=== PATIENT | male | born 1985 | race Caucasian/White ===

== ENCOUNTER 2018-06-30 02:33 | Emergency (ER) | payer SELFPAY ==
[2018-06-30 02:34] VITALS: BP 141/101
--- NOTE | 2018-06-30 02:37 | ER Report ---
History and Physical Time Seen By MD: 02:35 HPI/ROS CHIEF COMPLAINT: Shelter clearance HISTORY OF PRESENT ILLNESS: 32-year-old male brought in by police for [facility] clearance. Patient voices no complaints. Patient voices no significant medical history. REVIEW OF SYSTEMS: Respiratory: No cough, no dyspnea. Cardiovascular: No chest pain, no palpitations. Gastrointestinal: No vomiting, no abdominal pain. Musculoskeletal: No back pain. Allergies: Coded Allergies: No Known Drug Allergies (Unverified , 06/30/18) Reviewed Nurses Notes: Yes Old Medical Records Reviewed: Yes Constitutional Vital Sign - Last 24 Hours 06/30/18 02:34 Temp 97.5 Pulse 102 Resp 16 B/P (MAP) 141/101 Pulse Ox 90 O2 Delivery Room Air Physical Exam General Appearance: The patient is alert, has no immediate need for airway protection and no current signs of toxicity. The patient of the head and neck reveal no tenderness or trauma, vital signs stable, pulse ox normal, I'll tachycardia HEENT: Pupils equal and round no injection. Pharynx without dental trauma, facial bones intact Respiratory: Chest is non tender, lungs are clear to auscultation. No chest wall tenderness Cardiac: regular rate and rhythm Gastrointestinal: Abdomen is soft and non tender, no masses, bowel sounds normal. Musculoskeletal: Neck: Neck is supple and non tender. Extremities have full range of motion and are non tender. No evidence of trauma Skin: No rashes or lesions. DIFFERENTIAL DIAGNOSIS: After history and physical exam differential diagnosis was considered for [facility] clearance, alcohol intoxication, polysubstance abuse Medical Decision Making ED Course/Re-evaluation ED Course Patient was admitted to an examination room. H&P was done. The differential diagnoses was considered. Patient voices no complaints. His vital signs are stable. There are no findings on clinical examination. Patient's medically cleared for [facility] admission. Decision to Disposition Date: Jun 30, 2018 Decision to Disposition Time: 02:39 Depart Departure Latest Vital Signs Vital Signs Date Time Temp Pulse Resp B/P (MAP) Pulse Ox O2 Delivery O2 Flow Rate FiO2 06/30/18 02:34 97.5 102 16 141/101 90 Room Air Impression: Primary Impression: Medical clearance for incarceration Additional Impression: Alcohol intoxication Condition: Improved Disposition: [facility] TO CORRECTION/CORRECTIONAL F Patient Instructions: Alcohol Intoxication (ED) Additional Instructions: Medically cleared for [facility] admission Problem Qualifiers Additional Impression: Alcohol intoxication Complication of substance-induced condition: uncomplicated Qualified Codes: F10.920 - Alcohol use, unspecified with intoxication, uncomplicated ESTELA JUDD DO Jun 30, 2018 02:37
== END 2018-06-30 02:55 ==
LOC: ER 02:52
DX: F10.920 Alcohol use, unspecified with intoxication, uncomplicated (principal)
CPT/HCPCS: 99281